=== PATIENT | male | born 1975 | race Caucasian/White ===

== ENCOUNTER 2016-09-01 23:34 | Emergency (ER) | payer BC ==
[~2016-09-01] VITALS: Ht 177.8 cm; Wt 93.3 kg
[2016-09-01 23:35] VITALS: BP 120/80
== END 2016-09-02 01:06 | disposition home or self-care (01) ==
LOC: ED 23:59
DX: B08.8 Other specified viral infections characterized by skin and mucous membrane lesions (principal); K12.0 Recurrent oral aphthae
CPT/HCPCS: 99283